=== PATIENT | male | born 2000 | race Caucasian/White ===

== ENCOUNTER 2021-09-28 16:45 | Inpatient (IN) | payer OTHER ==
[~2021-09-28] VITALS: Ht 172.7 cm; Wt 67.6 kg
[2021-09-28] MEDS ORDERED: ACETAMINOPHEN 325 MG TABLET PO PRN (18:00)
[2021-09-28] MEDS: OxyCODONE HCL 5 MG IR TABLET PO PRN (19:34)
[2021-09-28 19:35] VITALS: BP 142/66
[2021-09-28 20:04] VITALS: BP 142/66
[2021-09-28] MEDS: SENNA 187 MG TABLET PO SCH (21:00)
[2021-09-28] MEDS: DOCUSATE SODIUM 100 MG CAPSULE PO SCH (21:00)
[2021-09-28] MEDS: ENOXAPARIN SODIUM 40 MG/0.4 ML PF SYRINGE SQ SCH (21:18)
[2021-09-28] MEDS: GABAPENTIN 300 MG CAPSULE PO SCH (21:19)
[2021-09-28] MEDS: ACETAMINOPHEN 325 MG TABLET PO SCH (21:19)
[2021-09-28] MEDS: CELECOXIB 200 MG CAPSULE PO SCH (21:20)
[2021-09-29] VITALS: BP 139/76
[2021-09-29] MEDS: OxyCODONE HCL 5 MG IR TABLET PO PRN ×4 (03:23→23:08)
[2021-09-29 08:00] VITALS: BP 150/62
[2021-09-29] MEDS: ENOXAPARIN SODIUM 40 MG/0.4 ML PF SYRINGE SQ SCH ×2 (08:34→08:41)
[2021-09-29] MEDS: DOCUSATE SODIUM 100 MG CAPSULE PO SCH ×2 (08:34→20:24)
[2021-09-29] MEDS: CELECOXIB 200 MG CAPSULE PO SCH ×2 (08:34→20:22)
[2021-09-29] MEDS: GABAPENTIN 300 MG CAPSULE PO SCH ×3 (08:34→20:23)
[2021-09-29] MEDS: ACETAMINOPHEN 325 MG TABLET PO SCH ×4 (08:34→20:22)
[2021-09-29 08:40] LABS: BASOPHILS % (AUTO) 1.1 % (0.0-2.0); EOSINOPHILS % (AUTO) 3.1 % (1.0-6.0); HEMATOCRIT 27.2 % (41-53); HEMOGLOBIN 9.4 g/dL (13.5-17.5); LYMPHOCYTES % (AUTO) 24.5 % (22.0-44.0); MEAN CORPUSCULAR HEMOGLOBIN 29.5 pg (26.0-34.0); MEAN CORPUSCULAR HGB CONC 34.4 G/dL (31.0-37.0); MEAN CORPUSCULAR VOLUME 86 fL (80-100); MONOCYTES # (AUTO) 0.7 K/uL (0.1-1.0); MONOCYTES % (AUTO) 9.1 % (2.0-9.0); NEUTROPHILS % (AUTO) 62.2 % (40.0-70.0); RED BLOOD CELL COUNT(AUTO) 3.18 MIL/uL (4.50-5.90); RED CELL DISTRIBUTION WIDTH 12.8 % (11.5-14.5)
[2021-09-29 08:42] LABS: PLATELET COUNT (AUTO) 827 K/uL (150-450)
[2021-09-29 09:04] LABS: ALANINE AMINOTRANSFERASE 66 U/L (12-78); ALBUMIN 3.2 g/dL (3.4-5.0); ALKALINE PHOSPHATASE 67 U/L (46-116); ANION GAP 9 mmol/L (8-16); ASPARTATE AMINOTRANSFERASE 35 U/L (15-37); BILIRUBIN,TOTAL 0.4 mg/dL (0.1-1.0); CALCIUM, TOTAL 9.7 mg/dL (8.8-10.5); CARBON DIOXIDE 29 mmol/L (22-29); CHLORIDE 98 mmol/L (98-107); CREATININE 0.83 mg/dL (0.60-1.30); GLOMERULAR FILTR. RATE CALC > 60 mL/min (>60); GLUCOSE,RANDOM 96 mg/dL (70-110); POTASSIUM 4.3 mmol/L (3.5-5.1); SODIUM SERUM 136 mmol/L (136-145); TOTAL PROTEIN, SERUM 8.7 g/dL (6.4-8.2); UREA NITROGEN, BLOOD 19 mg/dL (7-18)
[2021-09-29 11:00] VITALS: BP 133/74
[2021-09-29 16:30] VITALS: BP 127/68
[2021-09-29] MEDS: SENNA 187 MG TABLET PO SCH (20:24)
[2021-09-29] MEDS ORDERED: SODIUM CL IRRIG SOLN BOTTLE 250 ML IRRIG ONE (22:24)
[2021-09-30 00:08] VITALS: BP 132/63
[2021-09-30] MEDS: METHOCARBAMOL 750 MG TABLET PO PRN (01:33)
[2021-09-30] MEDS: OxyCODONE HCL 5 MG IR TABLET PO PRN ×3 (06:42→23:26)
[2021-09-30 08:00] VITALS: BP 139/73
[2021-09-30] MEDS: ASPIRIN 81 MG CHEWABLE TABLET PO SCH (09:53)
[2021-09-30] MEDS: DOCUSATE SODIUM 100 MG CAPSULE PO SCH ×2 (09:53→21:00)
[2021-09-30] MEDS: GABAPENTIN 300 MG CAPSULE PO SCH ×3 (09:53→21:33)
[2021-09-30] MEDS: ACETAMINOPHEN 325 MG TABLET PO SCH ×4 (09:54→21:34)
[2021-09-30] MEDS: ENOXAPARIN SODIUM 40 MG/0.4 ML PF SYRINGE SQ SCH (09:54)
[2021-09-30] MEDS: CELECOXIB 200 MG CAPSULE PO SCH ×2 (09:54→21:33)
[2021-09-30 16:17] VITALS: BP 124/68
[2021-09-30] MEDS: SODIUM CHLORIDE 0.65% 44 ML NASAL SPRAY NASAL SCH ×2 (16:17→21:33)
[2021-09-30] MEDS: SENNA 187 MG TABLET PO SCH (21:00)
[2021-10-01 00:30] VITALS: BP 131/74
[2021-10-01] MEDS: OxyCODONE HCL 5 MG IR TABLET PO PRN ×3 (06:26→21:55)
[2021-10-01] MEDS: ENOXAPARIN SODIUM 40 MG/0.4 ML PF SYRINGE SQ SCH (07:54)
[2021-10-01] MEDS: SODIUM CHLORIDE 0.65% 44 ML NASAL SPRAY NASAL SCH ×2 (07:54→20:53)
[2021-10-01] MEDS: ACETAMINOPHEN 325 MG TABLET PO SCH ×4 (07:55→20:54)
[2021-10-01] MEDS: CELECOXIB 200 MG CAPSULE PO SCH ×2 (07:55→20:54)
[2021-10-01] MEDS: GABAPENTIN 300 MG CAPSULE PO SCH ×3 (07:55→20:53)
[2021-10-01] MEDS: DOCUSATE SODIUM 100 MG CAPSULE PO SCH ×2 (07:56→20:55)
[2021-10-01] MEDS: ASPIRIN 81 MG CHEWABLE TABLET PO SCH (07:56)
[2021-10-01 08:32] VITALS: BP 128/67
[2021-10-01 16:08] VITALS: BP 133/80
[2021-10-01] MEDS: SENNA 187 MG TABLET PO SCH (20:54)
[2021-10-01 23:04] VITALS: BP 136/85
[2021-10-02] MEDS: OxyCODONE HCL 5 MG IR TABLET PO PRN (03:40)
[2021-10-02 08:00] VITALS: BP 122/82
[2021-10-02] MEDS: OxyCODONE HCL 10 MG IR TABLET PO PRN ×3 (08:00→21:17)
[2021-10-02] MEDS: ASPIRIN 81 MG CHEWABLE TABLET PO SCH (08:01)
[2021-10-02] MEDS: ACETAMINOPHEN 325 MG TABLET PO SCH ×4 (08:35→22:29)
[2021-10-02] MEDS: DOCUSATE SODIUM 100 MG CAPSULE PO SCH ×2 (08:35→21:12)
[2021-10-02] MEDS: GABAPENTIN 300 MG CAPSULE PO SCH ×3 (08:35→21:11)
[2021-10-02] MEDS: CELECOXIB 200 MG CAPSULE PO SCH ×2 (08:36→21:12)
[2021-10-02] MEDS: SODIUM CHLORIDE 0.65% 44 ML NASAL SPRAY NASAL SCH ×2 (08:37→21:11)
[2021-10-02] MEDS: ENOXAPARIN SODIUM 40 MG/0.4 ML PF SYRINGE SQ SCH (08:38)
[2021-10-02 15:48] VITALS: BP 114/70
[2021-10-02] MEDS: SENNA 187 MG TABLET PO SCH (21:12)
[2021-10-03 00:30] VITALS: BP 125/70
[2021-10-03] MEDS: OxyCODONE HCL 10 MG IR TABLET PO PRN ×2 (06:35→10:52)
[2021-10-03 08:00] VITALS: BP 118/53
[2021-10-03] MEDS: GABAPENTIN 300 MG CAPSULE PO SCH ×3 (09:09→21:09)
[2021-10-03] MEDS: ASPIRIN 81 MG CHEWABLE TABLET PO SCH (09:09)
[2021-10-03] MEDS: SODIUM CHLORIDE 0.65% 44 ML NASAL SPRAY NASAL SCH ×2 (09:09→21:08)
[2021-10-03] MEDS: DOCUSATE SODIUM 100 MG CAPSULE PO SCH ×2 (09:10→21:10)
[2021-10-03] MEDS: CELECOXIB 200 MG CAPSULE PO SCH ×2 (09:10→21:09)
[2021-10-03] MEDS: ACETAMINOPHEN 325 MG TABLET PO SCH ×4 (09:10→21:09)
[2021-10-03] MEDS: ENOXAPARIN SODIUM 40 MG/0.4 ML PF SYRINGE SQ SCH (09:11)
[2021-10-03] MEDS: OxyCODONE HCL 10 MG ER TABLET PO SCH ×2 (12:48→21:09)
[2021-10-03 15:53] VITALS: BP 117/54
[2021-10-03] MEDS: SENNA 187 MG TABLET PO SCH (21:08)
[2021-10-03 23:21] VITALS: BP 127/62
[2021-10-03] MEDS: OxyCODONE HCL 5 MG IR TABLET PO PRN (23:21)
[2021-10-04] MEDS: OxyCODONE HCL 5 MG IR TABLET PO PRN (06:00)
[2021-10-04 07:53] LABS: BASOPHILS % (AUTO) 0.7 % (0.0-2.0); EOSINOPHILS % (AUTO) 4.6 % (1.0-6.0); HEMATOCRIT 29.5 % (41-53); LYMPHOCYTES # (AUTO) 2.4 K/uL (1.0-4.8); LYMPHOCYTES % (AUTO) 37.2 % (22.0-44.0); MEAN CORPUSCULAR HEMOGLOBIN 29.5 pg (26.0-34.0); MEAN CORPUSCULAR HGB CONC 34.1 G/dL (31.0-37.0); MEAN CORPUSCULAR VOLUME 87 fL (80-100); MONOCYTES # (AUTO) 0.6 K/uL (0.1-1.0); MONOCYTES % (AUTO) 9.4 % (2.0-9.0); NEUTROPHILS # (AUTO) 3.1 K/uL (1.8-7.7); NEUTROPHILS % (AUTO) 48.1 % (40.0-70.0); PLATELET COUNT (AUTO) 520 K/uL (150-450); RED CELL DISTRIBUTION WIDTH 13.8 % (11.5-14.5)
[2021-10-04] MEDS: CELECOXIB 200 MG CAPSULE PO SCH ×2 (09:42→21:17)
[2021-10-04] MEDS: GABAPENTIN 300 MG CAPSULE PO SCH ×3 (09:42→21:17)
[2021-10-04] MEDS: OxyCODONE HCL 10 MG ER TABLET PO SCH ×2 (09:42→21:17)
[2021-10-04] MEDS: SODIUM CHLORIDE 0.65% 44 ML NASAL SPRAY NASAL SCH ×2 (09:42→21:16)
[2021-10-04] MEDS: ENOXAPARIN SODIUM 40 MG/0.4 ML PF SYRINGE SQ SCH (09:42)
[2021-10-04] MEDS: DOCUSATE SODIUM 100 MG CAPSULE PO SCH ×2 (09:43→21:17)
[2021-10-04] MEDS: ASPIRIN 81 MG CHEWABLE TABLET PO SCH (09:43)
[2021-10-04] MEDS: ACETAMINOPHEN 325 MG TABLET PO SCH ×4 (09:43→21:17)
[2021-10-04] MEDS: ETHYL ALCOHOL 62% ANTISEPTIC NASAL INHALANT 0.6 ML AMPUL NASAL SCH ×2 (09:53→21:17)
[2021-10-04 17:45] VITALS: BP 136/69
[2021-10-04] MEDS: OxyCODONE HCL 10 MG IR TABLET PO PRN (17:45)
[2021-10-04] MEDS: SENNA 187 MG TABLET PO SCH (21:17)
[2021-10-05 00:14] VITALS: BP 121/63
[2021-10-05] MEDS: OxyCODONE HCL 5 MG IR TABLET PO PRN (06:33)
[2021-10-05] MEDS: ASPIRIN 81 MG CHEWABLE TABLET PO SCH (09:17)
[2021-10-05] MEDS: ENOXAPARIN SODIUM 40 MG/0.4 ML PF SYRINGE SQ SCH (09:17)
[2021-10-05] MEDS: OxyCODONE HCL 10 MG ER TABLET PO SCH ×3 (09:18→23:41)
[2021-10-05] MEDS: DOCUSATE SODIUM 100 MG CAPSULE PO SCH ×2 (09:18→21:47)
[2021-10-05] MEDS: GABAPENTIN 300 MG CAPSULE PO SCH ×3 (09:18→21:46)
[2021-10-05] MEDS: ACETAMINOPHEN 325 MG TABLET PO SCH ×4 (09:18→21:46)
[2021-10-05] MEDS: ETHYL ALCOHOL 62% ANTISEPTIC NASAL INHALANT 0.6 ML AMPUL NASAL SCH ×2 (09:19→21:45)
[2021-10-05] MEDS: CELECOXIB 200 MG CAPSULE PO SCH ×2 (09:22→21:46)
[2021-10-05] MEDS: SODIUM CHLORIDE 0.65% 44 ML NASAL SPRAY NASAL SCH ×2 (09:22→21:45)
[2021-10-05 10:14] VITALS: BP 125/76
[2021-10-05] MEDS ORDERED: OxyCODONE HCL 10 MG ER TABLET PO SCH (16:00)
[2021-10-05 17:01] VITALS: BP 129/62
[2021-10-05] MEDS: SENNA 187 MG TABLET PO SCH (21:00)
[2021-10-06] VITALS: BP 128/55
[2021-10-06] MEDS: OxyCODONE HCL 10 MG ER TABLET PO SCH ×3 (06:17→22:27)
[2021-10-06] MEDS: ASPIRIN 81 MG CHEWABLE TABLET PO SCH (08:18)
[2021-10-06] MEDS: ETHYL ALCOHOL 62% ANTISEPTIC NASAL INHALANT 0.6 ML AMPUL NASAL SCH ×2 (09:18→20:20)
[2021-10-06] MEDS: ENOXAPARIN SODIUM 40 MG/0.4 ML PF SYRINGE SQ SCH (09:19)
[2021-10-06] MEDS: ACETAMINOPHEN 325 MG TABLET PO SCH ×4 (09:19→20:21)
[2021-10-06] MEDS: DOCUSATE SODIUM 100 MG CAPSULE PO SCH ×2 (09:20→20:21)
[2021-10-06] MEDS: GABAPENTIN 300 MG CAPSULE PO SCH ×3 (09:20→20:21)
[2021-10-06] MEDS: CELECOXIB 200 MG CAPSULE PO SCH ×2 (09:20→20:22)
[2021-10-06] MEDS: SODIUM CHLORIDE 0.65% 44 ML NASAL SPRAY NASAL SCH ×2 (09:21→20:20)
[2021-10-06 09:31] VITALS: BP 134/75
[2021-10-06] MEDS: OxyCODONE HCL 10 MG IR TABLET PO PRN (09:31)
[2021-10-06 17:00] VITALS: BP 117/69
[2021-10-06] MEDS: SENNA 187 MG TABLET PO SCH (20:21)
[2021-10-07] VITALS: BP 134/76
[2021-10-07] MEDS: OxyCODONE HCL 10 MG IR TABLET PO PRN (02:32)
[2021-10-07] MEDS: OxyCODONE HCL 10 MG ER TABLET PO SCH ×3 (07:01→22:38)
[2021-10-07] MEDS: ASPIRIN 81 MG CHEWABLE TABLET PO SCH (08:19)
[2021-10-07] MEDS: SODIUM CHLORIDE 0.65% 44 ML NASAL SPRAY NASAL SCH ×2 (08:19→21:08)
[2021-10-07] MEDS: ENOXAPARIN SODIUM 40 MG/0.4 ML PF SYRINGE SQ SCH (08:20)
[2021-10-07] MEDS: GABAPENTIN 300 MG CAPSULE PO SCH ×3 (08:20→21:08)
[2021-10-07] MEDS: ETHYL ALCOHOL 62% ANTISEPTIC NASAL INHALANT 0.6 ML AMPUL NASAL SCH ×2 (08:21→21:08)
[2021-10-07] MEDS: ACETAMINOPHEN 325 MG TABLET PO SCH ×4 (08:21→21:08)
[2021-10-07] MEDS: DOCUSATE SODIUM 100 MG CAPSULE PO SCH ×2 (08:21→21:09)
[2021-10-07] MEDS: CELECOXIB 200 MG CAPSULE PO SCH ×2 (08:21→21:09)
[2021-10-07 09:10] VITALS: BP 121/55
[2021-10-07 16:02] VITALS: BP 122/60
[2021-10-07] MEDS: SENNA 187 MG TABLET PO SCH (21:08)
[2021-10-07] MEDS: MELATONIN 5 MG TABLET PO PRN ×2 (21:09→22:38)
[2021-10-08] VITALS: BP 126/79
[2021-10-08] MEDS: OxyCODONE HCL 10 MG IR TABLET PO PRN ×2 (01:17→09:50)
[2021-10-08] MEDS: OxyCODONE HCL 10 MG ER TABLET PO SCH ×3 (06:59→22:34)
[2021-10-08] MEDS: ENOXAPARIN SODIUM 40 MG/0.4 ML PF SYRINGE SQ SCH (08:43)
[2021-10-08] MEDS: ASPIRIN 81 MG CHEWABLE TABLET PO SCH (08:44)
[2021-10-08] MEDS: GABAPENTIN 300 MG CAPSULE PO SCH ×3 (08:44→21:53)
[2021-10-08] MEDS: SODIUM CHLORIDE 0.65% 44 ML NASAL SPRAY NASAL SCH ×2 (08:45→21:53)
[2021-10-08] MEDS: ACETAMINOPHEN 325 MG TABLET PO SCH ×4 (08:45→21:54)
[2021-10-08] MEDS: ETHYL ALCOHOL 62% ANTISEPTIC NASAL INHALANT 0.6 ML AMPUL NASAL SCH ×2 (08:45→21:53)
[2021-10-08] MEDS: CELECOXIB 200 MG CAPSULE PO SCH ×2 (08:46→21:54)
[2021-10-08] MEDS: DOCUSATE SODIUM 100 MG CAPSULE PO SCH ×2 (09:00→21:54)
[2021-10-08 09:50] VITALS: BP 119/65
[2021-10-08 16:11] VITALS: BP 139/80
[2021-10-08] MEDS: SENNA 187 MG TABLET PO SCH (21:54)
[2021-10-08] MEDS: MELATONIN 5 MG TABLET PO PRN (22:34)
[2021-10-09] VITALS: BP 131/78
[2021-10-09] MEDS ORDERED: ENOX40DI9 SQ (00:57)
[2021-10-09] MEDS ORDERED: ASPI-1450 PO (00:57)
[2021-10-09] MEDS ORDERED: ACET-2247 PO (00:57)
[2021-10-09] MEDS ORDERED: SODI44SP18 NASAL (00:57)
[2021-10-09] MEDS ORDERED: SENN8.6T20 PO (00:57)
[2021-10-09] MEDS ORDERED: OXYC10TA59 PO (00:57)
[2021-10-09] MEDS ORDERED: CELE200 PO (00:57)
[2021-10-09] MEDS ORDERED: GABA-1181 PO (00:57)
[2021-10-09] MEDS ORDERED: DOCU-270 PO (00:57)
[2021-10-09] MEDS ORDERED: OXYC5 PO (01:01)
[2021-10-09] MEDS ORDERED: MELA5TAB40 PO (01:01)
[2021-10-09] MEDS ORDERED: OXYC10TA92 PO (01:01)
[2021-10-09] MEDS: OxyCODONE HCL 10 MG ER TABLET PO SCH ×3 (06:07→22:25)
[2021-10-09] MEDS: SODIUM CHLORIDE 0.65% 44 ML NASAL SPRAY NASAL SCH ×2 (08:13→20:31)
[2021-10-09] MEDS: ETHYL ALCOHOL 62% ANTISEPTIC NASAL INHALANT 0.6 ML AMPUL NASAL SCH ×2 (08:13→20:31)
[2021-10-09] MEDS: ENOXAPARIN SODIUM 40 MG/0.4 ML PF SYRINGE SQ SCH (08:14)
[2021-10-09] MEDS: GABAPENTIN 300 MG CAPSULE PO SCH ×3 (08:15→20:27)
[2021-10-09] MEDS: ASPIRIN 81 MG CHEWABLE TABLET PO SCH (08:16)
[2021-10-09] MEDS: ACETAMINOPHEN 325 MG TABLET PO SCH ×4 (08:16→20:28)
[2021-10-09] MEDS: CELECOXIB 200 MG CAPSULE PO SCH ×2 (08:17→20:27)
[2021-10-09] MEDS: DOCUSATE SODIUM 100 MG CAPSULE PO SCH ×2 (08:21→20:28)
[2021-10-09 08:59] VITALS: BP 119/73
[2021-10-09] MEDS: OxyCODONE HCL 10 MG IR TABLET PO PRN (17:47)
[2021-10-09 17:52] VITALS: BP 129/86
[2021-10-09] MEDS: METHOCARBAMOL 750 MG TABLET PO PRN (20:27)
[2021-10-09] MEDS: SENNA 187 MG TABLET PO SCH (20:28)
[2021-10-09] MEDS ORDERED: SODIUM CHLORIDE 0.9% IRRIG BTL 1,000 ML IRRIG ONE (21:45)
[2021-10-09] MEDS: MELATONIN 5 MG TABLET PO PRN (22:25)
[2021-10-10] VITALS: BP 124/61
[2021-10-10] MEDS: OxyCODONE HCL 10 MG IR TABLET PO PRN ×2 (05:17→12:30)
[2021-10-10 07:40] VITALS: BP 135/69
[2021-10-10] MEDS: ASPIRIN 81 MG CHEWABLE TABLET PO SCH (08:45)
[2021-10-10] MEDS: OxyCODONE HCL 10 MG ER TABLET PO SCH ×3 (08:45→22:26)
[2021-10-10] MEDS: ENOXAPARIN SODIUM 40 MG/0.4 ML PF SYRINGE SQ SCH (08:46)
[2021-10-10] MEDS: ETHYL ALCOHOL 62% ANTISEPTIC NASAL INHALANT 0.6 ML AMPUL NASAL SCH ×2 (08:46→20:26)
[2021-10-10] MEDS: SODIUM CHLORIDE 0.65% 44 ML NASAL SPRAY NASAL SCH ×2 (08:46→20:27)
[2021-10-10 09:27] VITALS: BP 135/69
[2021-10-10] MEDS: GABAPENTIN 300 MG CAPSULE PO SCH ×3 (09:38→20:27)
[2021-10-10] MEDS: ACETAMINOPHEN 325 MG TABLET PO SCH ×4 (09:38→20:29)
[2021-10-10] MEDS: CELECOXIB 200 MG CAPSULE PO SCH ×2 (09:38→20:27)
[2021-10-10] MEDS: DOCUSATE SODIUM 100 MG CAPSULE PO SCH ×2 (09:42→20:27)
[2021-10-10] MEDS ORDERED: SENN-187 PO (11:06)
[2021-10-10] MEDS ORDERED: METH-812 PO (11:06)
[2021-10-10] MEDS ORDERED: OXYC10TA59 PO (11:06)
[2021-10-10] MEDS ORDERED: OXYC5 PO (11:06)
[2021-10-10] MEDS ORDERED: CELE200 PO (11:06)
[2021-10-10] MEDS ORDERED: ASPI81 PO (11:06)
[2021-10-10] MEDS ORDERED: ACET325T51 PO (11:06)
[2021-10-10] MEDS ORDERED: DOCU-119 PO (11:06)
[2021-10-10] MEDS ORDERED: GABA-1181 PO (11:06)
[2021-10-10 19:50] VITALS: BP 117/58
[2021-10-10] MEDS: SENNA 187 MG TABLET PO SCH (20:27)
[2021-10-10] MEDS: MELATONIN 5 MG TABLET PO PRN (22:26)
[2021-10-10 23:00] VITALS: BP 124/71
[2021-10-11] MEDS: ENOXAPARIN SODIUM 40 MG/0.4 ML PF SYRINGE SQ SCH (05:36)
[2021-10-11] MEDS: OxyCODONE HCL 10 MG ER TABLET PO SCH (05:40)
[2021-10-11] MEDS: ASPIRIN 81 MG CHEWABLE TABLET PO SCH (05:40)
[2021-10-11] MEDS: DOCUSATE SODIUM 100 MG CAPSULE PO SCH (05:41)
[2021-10-11] MEDS: GABAPENTIN 300 MG CAPSULE PO SCH (05:41)
[2021-10-11] MEDS: CELECOXIB 200 MG CAPSULE PO SCH (05:41)
[2021-10-11] MEDS: SODIUM CHLORIDE 0.65% 44 ML NASAL SPRAY NASAL SCH (05:42)
[2021-10-11] MEDS: ACETAMINOPHEN 325 MG TABLET PO SCH (05:42)
== END 2021-10-11 07:15 | disposition home or self-care (01) | DRG 565 ==
LOC: 2WR 16:45
PROVIDERS: ADMIT Physical Medicine & Rehabilitation; ATTEND Physical Medicine & Rehabilitation
DX: M21.371 Foot drop, right foot (principal); E44.0 Moderate protein-calorie malnutrition; D64.9 Anemia, unspecified; D75.839 Thrombocytosis, unspecified; G47.00 Insomnia, unspecified; K59.00 Constipation, unspecified; M79.604 Pain in right leg; Z79.01 Long term (current) use of anticoagulants; Z68.22 Body mass index [BMI] 22.0-22.9, adult
CPT/HCPCS: 80053; 85025; 87081; 93970; 97110; 97116; 97140; 97161; 97167; 97530; 97535; 99366; J1650; Q9967